=== PATIENT | female | born 1990 | race Caucasian/White ===

== ENCOUNTER 2018-06-20 11:38 | Emergency (ER) | payer SELFPAY ==
[~2018-06-20] VITALS: Ht 152.4 cm; Wt 57.8 kg
[2018-06-20 11:46] VITALS: BP 97/63
[2018-06-20] MEDS ORDERED: PLEASE ENTER ALLERGIES MC SCH (12:00)
[2018-06-20] MEDS ORDERED: ALBUTEROL/IPRATROPIUM 2.5MG/0.5MG, 3 ML ONE ×2 (12:13→12:28)
[2018-06-20] MEDS: ALBUTEROL/IPRATROPIUM 2.5MG/0.5MG, 3 ML NPPB SCH (12:25)
== END 2018-06-20 13:20 | disposition home or self-care (01) ==
LOC: ED 13:14
DX: J45.41 Moderate persistent asthma with (acute) exacerbation (principal); F17.210 Nicotine dependence, cigarettes, uncomplicated
CPT/HCPCS: 94640; 99284; J7512; J7620

== ENCOUNTER 2018-11-15 04:01 | Inpatient (IN) | payer MEDICAID ==
[~2018-11-15] VITALS: Ht 175.3 cm; Wt 52.3 kg
--- NOTE | 2018-11-15 04:22 | NUR ---
PT. TO ED WITH C/O SI "I DON'T FEEL SAFE WITH MYSELF RIGHT NOW BECAUSE MY OF [age] YEARS WOKE UP THIS MORNING AND TOLD ME THAT HE WANTS A DIVORCE." PT. REPORTS "THE LAST TIME I TOOK MY MEDS WAS WHILE I WAS IN [place], I DON'T EVEN KNOW WHAT I AM SUPPOSED TO BE TAKING." LAST TOOK MEDS IN FEBRUARY. PT. REPORTS METH USE 2 DAYS AGO. HX OF PSYCH. 1 ATTEMPT IN THE PAST BY OD ON PILLS. ALL BELONGINGS REMOVED AND PLACED IN 2 BAGS IN LOCKER. (1 GREEN BACKPACK IN 1 BAG, BRA, SHOES, AND PANTS IN THE OTHER BAG) PT. IN SECURED ROOM; BOOSTER PUMP OPERATOR AWARE AND SITTER REQUESTED.
--- NOTE | 2018-11-15 04:30 | NUR ---
PT. IS AWARE OF NEED FOR UA, WATER PROVIDED PT. UNABLE TO VOID AT THIS TIME. DR. SALAZAR IN TO EVAL PT. AND DISCUSS POC.
--- NOTE | 2018-11-15 05:07 | NUR ---
PT. DRANK 2 CUPS OF WATER. PT. REMAINS UNABLE TO PROVIDE URINE SAMPLE AT THIS TIME BUT STATES "I SHOULD BE ABLE TO GO SOON". SITTER IN BRAY OUTSIDE OF DOOR. ROOM REMAINS SECURED.
[2018-11-15 05:12] LABS: ANION GAP 10 mmol/L (5-15); BASOPHILS # (AUTO) 0.03 x10^3/uL (0-0.1); BASOPHILS % (AUTO) 0 % (0-1); CALCIUM 8.6 mg/dL (8.5-10.1); CHLORIDE 108 mmol/L (98-107); CREATININE 0.66 mg/dL (0.55-1.02); EOSINOPHILS # (AUTO) 0.07 x10^3/uL (0-0.4); EOSINOPHILS % (AUTO) 1 % (1-7); LYMPHOCYTES # (AUTO) 1.68 x10^3/uL (1-3.4); LYMPHOCYTES % (AUTO) 24 % (22-44); MD NO; MEAN CORPUSCULAR HEMOGLOBIN 28.5 pg (27.0-34.8); MEAN CORPUSCULAR HGB CONC 32.9 g/dL (32.4-35.8); MEAN CORPUSCULAR VOLUME 86.7 fL (80-100); MEAN PLATELET VOLUME 9.5 fL (7.4-10.4); MONOCYTES # (AUTO) 0.73 x10^3/uL (0.2-0.8); MONOCYTES % (AUTO) 10 % (2-9); NEUTROPHILS # (AUTO) 4.57 x10^3/uL (1.8-6.8); NEUTROPHILS % (AUTO) 65 % (42-75); PLATELET COUNT 313 x10^3/uL (130-400); RED BLOOD COUNT 4.34 x10^6/uL (3.82-5.3); RED CELL DISTRIBUTION WIDTH 16.6 % (9.6-15.2)
[2018-11-15 05:15] LABS: SALICYLATE LEVEL < 1.7 mg/dL (2.8-20.0)
[2018-11-15] MEDS ORDERED: POTASSIUM CHLORIDE 20 MEQ TAB.ER.PRT PO ONE (05:30)
[2018-11-15] MEDS ORDERED: POTASSIUM CHLORIDE 20 MEQ TAB.ER.PRT ONE (05:38)
--- NOTE | 2018-11-15 05:41 | NUR ---
PT. MEDICATED PER MAR AND MORE WATER PROVIDED. PT. REMAINS AWARE OF NEED FOR UA AND STATES "I CAN TRY SOON." SITTER REMAINS IN BRAY, ROOM SECURED.
--- NOTE | 2018-11-15 07:08 | NUR ---
REPORT TO KACI MUELLER. URINE SENT.
--- NOTE | 2018-11-15 07:14 | NUR ---
REPORT TAKEN FROM KACI HERNANDEZ. PT RESTING ON [facility]. PERRY. ROOM SECURED. SITTER AT BEDSIDE.
[2018-11-15 07:28] LABS: AMPHETAMINE SCREEN, URINE Positive (Negative); BARBITURATE SCREEN, URINE Negative (Negative); BENZODIAZEPINE SCREEN, URINE Negative (Negative); CANNABINOID SCREEN, URINE Positive (Negative); COCAINE SCREEN, URINE Negative (Negative); METHADONE SCREEN, URINE Negative (Negative); OPIATE SCREEN, URINE Negative (Negative)
--- NOTE | 2018-11-15 08:01 | NUR ---
PT WOKEN UP FOR VITAL SIGN CHECK AT THIS TIME. DENIES NEEDS. VSS. JUANAN. PT RESTING ON [place].
--- NOTE | 2018-11-15 10:39 | NUR ---
[place]
--- NOTE | 2018-11-15 11:34 | NUR ---
[place]. SITTER AT BEDSIDE.
--- NOTE | 2018-11-15 11:44 | NUR ---
PACKET FAXED TO [facility] AND [facility]
--- NOTE | 2018-11-15 13:08 | NUR ---
LUNCH GIVEN TO PATIENT AT THIS TIME. SITTING ON GURNEY. NADN. DENIES NEEDS.
--- NOTE | 2018-11-15 14:11 | NUR ---
[place] P[place]. SITTER AT BEDSIDE.
--- NOTE | 2018-11-15 16:06 | NUR ---
PT ASLEEP ON [place]. P[place]Y. SITTER AT BEDSIDE. ROOM SECURED.
--- NOTE | 2018-11-15 16:54 | NUR ---
EATING DINNER AT THIS TIME. DENIES NEEDS. SITTING ON WHIT. PERRY.
--- NOTE | 2018-11-15 16:55 | NUR ---
SITTER AT BEDSIDE. ROOM SECURE.
--- NOTE | 2018-11-15 18:39 | NUR ---
PT GIVEN WATER AT THIS TIME. RESTING ON GURNEY. NADN. DENIES NEEDS. SITTER AT BEDSIDE. ROOM SECURE.
--- NOTE | 2018-11-15 18:53 | NUR ---
REPORT RECIEVED FROM KACI MUELLER. PT RESTING IN STRETCHER. SITTER PRESENT. PSYCH SAFE ROOM. EVEN EQUAL CHEST RISE AND FALL. NAD.
[2018-11-15] MEDS ORDERED: DOXEPIN 25 MG CAPSULE PO PRN (20:00)
[2018-11-15] MEDS ORDERED: NICOTINE 14MG/24 HR PATCH.TD24 TD PRN (20:00)
[2018-11-15] MEDS ORDERED: HYDROXYZINE PAMOATE 50MG CAP PO PRN (20:00)
[2018-11-15] MEDS ORDERED: TRAZODONE 50MG TABLET PO PRN (20:30)
[2018-11-15] MEDS ORDERED: NICOTINE 21 MG/24 HR PATCH.TD24 TD SCH (20:30)
[2018-11-15] MEDS ORDERED: ONDANSETRON ODT 4 MG PO PRN (20:30)
[2018-11-15] MEDS ORDERED: BISACODYL 10 MG SUPP PR PRN (20:30)
[2018-11-15] MEDS ORDERED: POLYETHYLENE GLYCOL 17 GM PACKET PO PRN (20:30)
[2018-11-15] MEDS ORDERED: ACETAMINOPHEN 325 MG TABLET PO PRN (20:30)
[2018-11-15] MEDS ORDERED: ARIPIPRAZOLE 10 MG TABLET ONE (20:32)
[2018-11-15] MEDS ORDERED: NICOTINE 21 MG/24 HR PATCH.TD24 ONE (20:33)
--- NOTE | 2018-11-15 20:59 | NUR ---
REPORT CALLED TO 2N. DRIVER EXAMINER NOTED PT NOT TO HAVE IV IF GOING TO 2[facility]. NO IV PLACED.
[2018-11-15] MEDS: SODIUM CHLORIDE FLUSH 10ML SYR IVF SCH (21:00)
[2018-11-15] MEDS ORDERED: ARIPIPRAZOLE 10 MG TABLET PO SCH (21:00)
[2018-11-15 21:02] VITALS: BP 123/65
[2018-11-16 08:00] VITALS: BP 113/75
[2018-11-16] MEDS: SODIUM CHLORIDE FLUSH 10ML SYR IVF SCH (08:25)
[2018-11-16] MEDS ORDERED: SENNA/DOCUSATE TABLET PO SCH (09:00)
[2018-11-16] MEDS ORDERED: DOXE25CA PO (09:28)
[2018-11-16] MEDS ORDERED: NICO-487 TD (09:28)
[2018-11-16] MEDS ORDERED: ARIP10TA33 PO (09:28)
[2018-11-16] MEDS ORDERED: HYDR50CA2 PO (09:28)
== END 2018-11-16 09:56 | DRG 750 ==
LOC: ED 04:36 → EDIP 20:10 → 2N 21:06
PROVIDERS: ADMIT Internal Medicine; ATTEND Internal Medicine
DX: F25.9 Schizoaffective disorder, unspecified (principal); R45.851 Suicidal ideations; F15.20 Other stimulant dependence, uncomplicated; F12.10 Cannabis abuse, uncomplicated; F17.210 Nicotine dependence, cigarettes, uncomplicated; F31.9 Bipolar disorder, unspecified; F41.9 Anxiety disorder, unspecified; J45.909 Unspecified asthma, uncomplicated; Z59.0 Homelessness; Z91.14 Patient's other noncompliance with medication regimen
CPT/HCPCS: 36415; 80048; 80307; 82040; 84703; 85025; G0378

== ENCOUNTER 2020-05-20 15:25 | Emergency (ER) | payer SELFPAY ==
[~2020-05-20 15:25] MED LIST: ARIP10TA33 PO; DOXE25CA PO; HYDR50CA2 PO; NICO-587 TD
--- NOTE | 2020-05-20 15:51 | NUR ---
NOT IN LOBBY WHEN CALLED FOR TRIAGE
--- NOTE | 2020-05-20 15:58 | NUR ---
NOT IN LOBBY WHEN CALLED FOR TRIAGE. PATIENT IN LOBBY STATES THAT 'SHE WALKED OUT'. MACHINE ETCHER AWARE.
--- NOTE | 2020-05-20 16:03 | NUR ---
store product demonstrator: attempted to call pt for triage, no answer. pt not in lobby
== END 2020-05-20 16:18 | disposition left against medical advice (07) ==
LOC: ED 16:00
DX: K08.89 Other specified disorders of teeth and supporting structures (principal); Z53.21 Procedure and treatment not carried out due to patient leaving prior to being seen by health care provider